=== PATIENT | male | born 1960 | race African-American/Black ===

== ENCOUNTER 2017-08-06 21:14 | Emergency (ER) | payer SELFPAY ==
[~2017-08-06] VITALS: Ht 182.9 cm; Wt 113.0 kg
[2017-08-06 21:20] VITALS: BP 169/99
[2017-08-06] MEDS ORDERED: KETOROLAC 30MG/ML VIAL IV ONE (23:15)
== END 2017-08-07 01:41 | disposition home or self-care (01) ==
LOC: ER 21:49
DX: M25.551 Pain in right hip (principal); R51 Headache; I10 Essential (primary) hypertension; F17.200 Nicotine dependence, unspecified, uncomplicated; W07.XXXA Fall from chair, initial encounter; Y93.89 Activity, other specified; Y92.89 Other specified places as the place of occurrence of the external cause; Y99.8 Other external cause status
CPT/HCPCS: 72100; 73502; 96374; 99284; J1885; Z7610